=== PATIENT | male | born 1980 | race Caucasian/White ===

== ENCOUNTER 2017-07-05 20:33 | Emergency (ER) | payer OTHER ==
[~2017-07-05] VITALS: Ht 182.9 cm; Wt 122.5 kg
[2017-07-05] MEDS ORDERED: GENVOYA TABLET1 EACH PO (21:06)
[2017-07-05 22:30] VITALS: BP 127/86
== END 2017-07-05 22:31 | disposition home or self-care (01) ==
LOC: ER 20:33
DX: S61.216A Laceration without foreign body of right little finger without damage to nail, initial encounter (principal); G35 Multiple sclerosis; Z21 Asymptomatic human immunodeficiency virus [HIV] infection status; W20.8XXA Other cause of strike by thrown, projected or falling object, initial encounter; Y93.89 Activity, other specified; Y92.89 Other specified places as the place of occurrence of the external cause; Y99.8 Other external cause status